=== PATIENT | male | born 1975 | race Two or more races ===

== ENCOUNTER 2023-10-16 08:23 | Emergency (ER) | payer MEDICAID, OTHER ==
[~2023-10-16] VITALS: Ht 149.9 cm; Wt 87.5 kg
[2023-10-16 08:32] VITALS: BP 121/90; PULSE 90; RESP 18; TEMP 98.1; O2SAT 100
[2023-10-16] MEDS ORDERED: IBUP-2213 PO (09:12)
[2023-10-16 09:15] VITALS: BP 121/90; PULSE 90; RESP 18; TEMP 98.1; O2SAT 100
== END 2023-10-16 09:15 | disposition home or self-care (01) ==
LOC: MED 08:23
DX: S61.210A Laceration without foreign body of right index finger without damage to nail, initial encounter (principal); S61.212A Laceration without foreign body of right middle finger without damage to nail, initial encounter; S61.214A Laceration without foreign body of right ring finger without damage to nail, initial encounter; I10 Essential (primary) hypertension; E11.9 Type 2 diabetes mellitus without complications; Z79.4 Long term (current) use of insulin; Z79.899 Other long term (current) drug therapy; W26.8XXA Contact with other sharp object(s), not elsewhere classified, initial encounter; Y93.89 Activity, other specified; Y92.89 Other specified places as the place of occurrence of the external cause; Y99.8 Other external cause status
CPT/HCPCS: 90471; 90715; 99283